=== PATIENT | male | born 1965 | race Caucasian/White ===

== ENCOUNTER 2017-06-20 17:14 | Inpatient (IN) | payer OTHER ==
[2017-06-20 18:28] VITALS: BMI 27.1
--- NOTE | 2017-06-20 19:46 | HP ---
CIWA Score - CIWA Score Nausea/Vomitin-No Nausea/No Vomiting Muscle Tremors: 2 Anxiety: 3 Agitation: 2 Paroxysmal Sweats: No Perspiration Orientation: 2-Disoriented Date<2 days (reports date as 06/16/17) Tacttile Disturbances: 1-Very Mild Itch/Numbness Auditory Disturbances: 0-None Visual Disturbances: 2-Mild Sensitivity Headache: 0-None Present CIWA-Ar Total Score: 12 Admission ROS BHS - HPI Chief Complaint: " I need help, I am a drunk, I need to get my life together. I have the jitters when I do not have alcohol." Allergies/Adverse Reactions: Allergies Allergy/AdvReac Type Severity Reaction Status Date / Time No Known Allergies Allergy Verified 06/20/17 18:50 History of Present Illness: Patient is 52 yo male with hx of chronic alcohol dependence is here seeking detox. Last detox at [facility] 4 years ago. HX : organic brain disease with forgetfulness, HTN, anemia, anxiety, depression. Denies suicidal / homicidal ideation or suicide attempts . reports hx of seizure relates to alcohol use, last seizure 2 years ago. Exam Limitations: No Limitations - Ebola screening Have you traveled outside of the country in the last 21 days: No (N) Have you had contact with anyone from an Ebola affected area: No Have you been sick,other than usual withdrawal symptoms: No Do you have a fever: No - Review of Systems Constitutional: Chills EENT: reports: Hearing Loss (both ears) Respiratory: reports: No Symptoms reported Cardiac: reports: No Symptoms Reported GI: reports: Nausea, Poor Fluid Intake : reports: No Symptoms Reported Musculoskeletal: reports: Back Pain Integumentary: reports: No Symptoms Reported Neuro: reports: See HPI, Seizure Endocrine: reports: Increased Thirst Hematology: reports: Anemia Psychiatric: reports: Orientated x3, Anxious Other Systems: Reviewed and Negative Patient History - Patient Medical History Hx Anemia: Yes Hx Asthma: No Hx Chronic Obstructive Pulmonary Disease (COPD): No Hx Cancer: No Hx Cardiac Disorders: No Hx Congestive Heart Failure: No Hx Hypertension: Yes (not on medication ) Hx Hypercholesterolemia: No Hx Pacemaker: No HX Cerebrovascular Accident: No Hx Seizures: Yes (alcohol related 2 years ago ) Hx Dementia: No Hx Diabetes: No Hx Gastrointestinal Disorders: No Hx Liver Disease: No Hx Genitourinary Disorders: No Hx Sexually Transmitted Disorders: No Hx Renal Disease (ESRD): No Hx Thyroid Disease: No Hx Human Immunodeficiency Virus (HIV): No (reports has not been tested , declines testing today ) Hx Hepatitis C: No Hx Depression: Yes Hx Suicide Attempt: No Hx Bipolar Disorder: No Hx Schizophrenia: No - Patient Surgical History Past Surgical History: Yes Hx Neurologic Surgery: No Hx Cataract Extraction: No Hx Cardiac Surgery: No Hx Lung Surgery: No Hx Breast Surgery: No Hx Breast Biopsy: No Hx Abdominal Surgery: No Hx Appendectomy: No Hx Cholecystectomy: No Hx Genitourinary Surgery: No Hx Section: No Hx Orthopedic Surgery: No Anesthesia Reaction: No - PPD History Previous Implant?: Yes Documented Results: Negative w/o proof PPD to be Administered?: Yes - Reproductive History Patient is a Female of Child Bearing Age (11 -55 yrs old): No - Smoking Cessation Smoking history: Former smoker Have you smoked in the past 12 months: No Aproximately how many cigarettes per day: 0 If you are a former smoker, when did you quit?: 11 YEARS AGO Hx Chewing Tobacco Use: No Initiated information on smoking cessation: Yes 'Breaking Loose' booklet given: 06/20/17 - Substance & Tx. History Hx Alcohol Use: Yes Hx Substance Use: Yes Substance Use Type: Alcohol Hx Substance Use Treatment: Yes ([facility] 4 years ago ) - Substances Abused Alcohol Route: Oral Frequency: Daily Amount used: LIQUOR- 4 PINTS Age of first use: 21 Date of Last Use: 06/20/17 Family Disease History - Family Disease History Family Disease History: CA: Father (), Other: Father Admission Physical Exam S - Vital Signs Vital Signs: Vital Signs - 24 hr 06/20/17 18:22 Temperature 98.1 F Pulse Rate 92 H Respiratory 18 Rate Blood Pressure 133/75 - Physical General Appearance: Yes: Disheveled, Mild Distress, Alcohol on Breath, Sweating , Anxious, Other (malodorous) HEENTM: Yes: EOMI, Normal ENT Inspection, Normocephalic, Normal Voice, Pharynx Normal, Tm's normal, Other (chelithis) Respiratory: Yes: Chest Non-Tender, Lungs Clear, Normal Breath Sounds, No Respiratory Distress, No Accessory Muscle Use Neck: Yes: Within Normal Limits Breast: Yes: Breast Exam Deferred Cardiology: Yes: Regular Rhythm, Regular Rate Abdominal: Yes: Normal Bowel Sounds, Non Tender, Soft, Protuberent, Surgical Scar Genitourinary: Yes: Within Normal Limits Back: Yes: Normal Inspection Musculoskeletal: Yes: full range of Motion, Gait Steady, Pelvis Stable, Back pain Extremities: Yes: Normal Capillary Refill, Normal Inspection, Normal Range of Motion, Non-Tender Neurological: Yes: outreach and education social worker II-XII NML intact, Alert (AO x PP), Motor Strength 5/5, Depressed Affect, Other (forgetful, needs additonal time to process information and to respond) Integumentary: Yes: Normal Color, Warm, Moist Lymphatic: Yes: Within Normal Limits - Diagnostic (1) Alcohol dependence with withdrawal Current Visit: Yes Status: Acute (2) Organic brain syndrome Current Visit: Yes Status: Acute (3) Dehydration Current Visit: Yes Status: Acute (4) Anxious mood Current Visit: Yes Status: Acute (5) Hypertension Current Visit: Yes Status: Chronic Qualifiers: Hypertension type: essential hypertension Qualified Code(s): I10 - Essential (primary) hypertension Cleared for Admission [facility] - Detox or Rehab [facility] Level of Care: Medically Managed Detox Regimen/Protocol: Librium [facility] Breath Alcohol Content Breath Alcohol Content: 0.290 Urine Drug Screen - Results Drug Screen Negative: No Urine Drug Screen Results: BZO-Benzodiazepines
[2017-06-20] MEDS ORDERED: ACETAMINOPHEN 325 MG TABLET (FP) PO PRN (20:01)
[2017-06-20] MEDS ORDERED: MAGNESIUM CITRATE 300 ML BOTTLE PO PRN (20:01)
[2017-06-20] MEDS ORDERED: guaiFENesin/D-METHORPHAN HB 10 ML UNIT-DOSE CUPS PO PRN (20:01)
[2017-06-20] MEDS ORDERED: chlordiazePOXIDE HCL 25 MG CAPSULE PO ONE (20:01)
[2017-06-20] MEDS ORDERED: MAG HYDROX/AL HYDROX/SIMETH 30 ML UNIT-DOSE CUP PO PRN (20:01)
[2017-06-20] MEDS ORDERED: LOPERAMIDE HCL 2 MG CAPSULE PO PRN (20:01)
[2017-06-20] MEDS ORDERED: P-EPHED 60MG/TRIPROLIDI 2.5MG TABLET PO PRN (20:01)
[2017-06-20] MEDS ORDERED: MENTHOL/PHENOL 1 EACH UD MM PRN (20:01)
[2017-06-20] MEDS ORDERED: MAGNESIUM HYDROX 2400MG/30ML ORAL SUSPENSION 30 ML CUP PO PRN (20:01)
[2017-06-20] MEDS ORDERED: IBUPROFEN 400 MG TABLET (FP) PO PRN (20:01)
[2017-06-20] MEDS ORDERED: hydrOXYzine PAMOATE 50 MG CAPSULE (FP) PO PRN (20:01)
[2017-06-20] MEDS ORDERED: MELATONIN 5 MG TABLETS PO PRN (22:00)
[2017-06-20] MEDS: THIAMINE HCL 100 MG TABLET (FP) PO SCH (22:22)
[2017-06-20] MEDS: chlordiazePOXIDE HCL 25 MG CAPSULE PO SCH (22:52)
[2017-06-21 01:40] LABS: URINE APPEARANCE CLEAR; URINE BILIRUBIN NEGATIVE (<2.0 mg/dL); URINE BLOOD NEGATIVE (NEGATIVE); URINE COLOR YELLOW; URINE GLUCOSE (UA) NEGATIVE (NEGATIVE); URINE KETONE NEGATIVE (NEGATIVE); URINE LEUK ESTERASE NEGATIVE (NEGATIVE); URINE NITRITE NEGATIVE (NEGATIVE)
[2017-06-21 01:45] LABS: URINE PROTEIN 1+ (NEGATIVE)
[2017-06-21 01:55] LABS: EPI CELLS FEW /HPF (FEW); URINE HYALINE CAST 1 /lpf; URINE MUCUS RARE
[2017-06-21] MEDS: chlordiazePOXIDE HCL 25 MG CAPSULE PO PRN ×2 (02:38→07:02)
[2017-06-21] MEDS: chlordiazePOXIDE HCL 25 MG CAPSULE PO SCH ×4 (05:19→22:21)
[2017-06-21] MEDS ORDERED: cloNIDine HCL 0.1 MG TABLET PO ONE (06:54)
[2017-06-21] MEDS ORDERED: cloNIDine HCL 0.1 MG TABLET PO PRN (06:54)
--- NOTE | 2017-06-21 10:08 | EKG ---
Test Reason : Blood Pressure : / mmHG Vent. Rate : 109 BPM Atrial Rate : 109 BPM P-R Int : 146 ms QRS Dur : 094 ms QT Int : 330 ms P-R-T Axes : 057 021 044 degrees QTc Int : 444 ms SINUS TACHYCARDIA NO PREVIOUS ECGS AVAILABLE Confirmed by MONTNAA ACOSTA MD ([id number]) on 06/21/2017 10:07:41 AM Referred By: Confirmed By:MONTANA ACOSTA MD
[2017-06-21] MEDS ORDERED: amLODIPine BESYLATE 5 MG TABLET (FP) PO SCH (10:15)
[2017-06-21] MEDS: PRENATAL VITAMINS W/ FOLIC ACID TABLET (FP) PO SCH (10:21)
[2017-06-21 10:30] LABS: ALBUMIN 3.9 g/dl (3.4-5.0); ANION GAP 10 (8-16); BLOOD UREA NITROGEN 13 mg/dL (7-18); CHLORIDE 100 mmol/L (98-107); CO2 30 mmol/L (21-32); GLUCOSE,RANDOM 99 mg/dL (74-106); SODIUM 140 mmol/L (136-145)
[2017-06-21 10:31] LABS: HEMATOCRIT 30.3 % (35.4-49); HEMOGLOBIN 9.3 GM/dL (11.7-16.9); MCH 22.4 pg (25.7-33.7); MCHC 30.6 g/dl (32.0-35.9); MEAN CELL VOLUME 73.3 fl (80-96); MEAN PLT VOLUME 7.5 fl (7.5-11.1); PLATELET COUNT 173 K/MM3 (134-434); RBC 4.13 M/mm3 (4.00-5.60); RDW 22.6 % (11.9-15.9); WHITE BLOOD COUNT 5.5 K/mm3 (4.0-10.0)
[2017-06-21 10:33] LABS: ALK PHOS 111 U/L (45-117); BILIRUBIN,TOTAL 0.5 mg/dL (0.2-1.0); CREATININE 0.7 mg/dL (0.7-1.3); SGOT/AST 33 U/L (15-37); SGPT/ALT 22 U/L (12-78); TOT PROT 8.1 g/dl (6.4-8.2)
--- NOTE | 2017-06-21 10:39 | CONSULT ---
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 Substance Abuse History: Discussed in this interview.Mr Corbin endorses a 30+ history of alcohol abuse. Details in current [facility] report : Smoking history: Former smoker. Have you smoked in the past 12 months: No. Aproximately how many cigarettes per day: 0. If you are a former smoker, when did you quit?: 11 YEARS AGO. Hx Chewing Tobacco Use: No. Initiated information on smoking cessation: Yes. 'Breaking Loose' booklet given: 06/20/17. - Substance & Tx. History. Hx Alcohol Use: Yes. Hx Substance Use: Yes. Substance Use Type: Alcohol. Hx Substance Use Treatment: Yes ([facility] 4 years ago ). - Substances Abused. Alcohol. Route: Oral. Frequency: Daily. Amount used: LIQUOR- 4 PINTS. Age of first use: 21. Date of Last Use: 06/20/17 Medical History: History of organic brain syndrome,seizures,anemia and hypertension. Psychiatric History: No reported history of psychiatric hospitalizations.Patient reports that he used to see a private psychiatrist in the [facility] ([place]) to address depression and anxiety.Dropped out of treatment some weeks ago.Prescribed zoloft 50 mg/day until 06/07/17 as evidenced by pharmacy claims at [facility].Mr Corbin denies history of suicide attempts. Physical/Sexual Abuse/Trauma History: Patient denies history of abuse. Additional Comment: Urine Drug Screen Results: BZO-Benzodiazepines.Noted. Mental Status Exam - Mental Status Exam Alert and Oriented to: Time, Place, Person Cognitive Function: Good Patient Appearance: Well Groomed Mood: Nervous, Withdrawn, Anxious Affect: Mood Congruent, Constricted Patient Behavior: Fatigued, Cooperative Speech Pattern: Clear, Appropriate Voice Loudness: Normal Thought Process: Intact, Goal Oriented Thought Disorder: Not Present Hallucinations: Denies Suicidal Ideation: Denies Insight/Judgement: Fair Sleep: Poorly, Difficulty falling asleep Appetite: Good Muscle strength/Tone: Normal Gait/Station: Normal Psychiatric Findings - Problem List ([place] 1, 2,3) (1) Alcohol dependence with withdrawal Current Visit: Yes Status: Acute Qualifiers: Complication of substance-induced condition: uncomplicated Qualified Code(s ): F10.230 - Alcohol dependence with withdrawal, uncomplicated (2) Substance induced mood disorder Current Visit: Yes Status: Acute (3) Depressive disorder Current Visit: Yes Status: Chronic Comment: As per self-report.On medications. (4) Insomnia Current Visit: Yes Status: Acute Qualifiers: Insomnia type: unspecified Qualified Code(s): G47.00 - Insomnia, unspecified - Initial Treatment Plan Initial Treatment Plan: Psychoeducation.Sleep hygiene discussed.Detoxification in progress.Medications : zoloft 50 mg po daily + vistaril 25 mg po hs.Side effects/benefits of both drugs are discussed with the patient.Patient agrees with this careplan.Observation.
--- NOTE | 2017-06-21 12:32 | PN ---
[facility] CIWA - CIWA Score Nausea/Vomitin-No Nausea/No Vomiting Muscle Tremors: 4-Moderate,w/Arms Extend Anxiety: 5 Agitation: 4-Moderately Restless Paroxysmal Sweats: No Perspiration Orientation: 0-Oriented Tacttile Disturbances: 2-Mild Itch/Numbness/Burn Auditory Disturbances: 2-Mild Harshness/Frighten Visual Disturbances: 0-None Headache: 0-None Present CIWA-Ar Total Score: 17 BHS Progress Note (SOAP) Subjective: Diarrhea, Tremors, Anxious. Objective: PATIENT A & O X 3, OBSERVED AMBULATING ON UNIT. NO ACUTE DISTRESS. PATIENT DENIES CHEST PAIN, SOB, AND DIZZINESS. 06/21/17 12:30 Vital Signs Temperature 96.7 F L 06/21/17 09:10 Pulse Rate 101 H 06/21/17 09:10 Respiratory Rate 18 06/21/17 09:10 Blood Pressure 161/96 06/21/17 09:10 O2 Sat by Pulse Oximetry (%) Laboratory Tests 06/20/17 06/21/17 06/21/17 23:43 08:00 08:00 WBC 5.5 RBC 4.13 Hgb 9.3 L Hct 30.3 L MCV 73.3 L MCH 22.4 L MCHC 30.6 L RDW 22.6 H Plt Count 173 MPV 7.5 Sodium 140 Potassium 4.0 Chloride 100 Carbon Dioxide 30 Anion Gap 10 BUN 13 Creatinine 0.7 Creat Clearance w eGFR > 60 Random Glucose 99 Calcium 9.0 Total Bilirubin 0.5 AST 33 ALT 22 Alkaline Phosphatase 111 Total Protein 8.1 Albumin 3.9 Urine Color Yellow Urine Appearance Clear Urine pH 6.0 Ur Specific [place] 1.024 Urine Protein 1+ H Urine Glucose (UA) Negative Urine Ketones Negative Urine Blood Negative Urine Nitrite Negative Urine Bilirubin Negative Urine Urobilinogen 2.0 Ur Leukocyte Esterase Negative Urine WBC (Auto) 12 Urine RBC (Auto) 1 Ur Epithelial Cells Few Hyaline Casts 1 Urine Mucus Rare RPR Titer 06/21/17 08:00 WBC RBC Hgb Hct MCV MCH MCHC RDW Plt Count MPV Sodium Potassium Chloride Carbon Dioxide Anion Gap BUN Creatinine Creat Clearance w eGFR Random Glucose Calcium Total Bilirubin AST ALT Alkaline Phosphatase Total Protein Albumin Urine Color Urine Appearance Urine pH Ur Specific [place] Urine Protein Urine Glucose (UA) Urine Ketones Urine Blood Urine Nitrite Urine Bilirubin Urine Urobilinogen Ur Leukocyte Esterase Urine WBC (Auto) Urine RBC (Auto) Ur Epithelial Cells Hyaline Casts Urine Mucus RPR Titer Nonreactive LABS NOTED. 06/21/17 12:32 Assessment: 06/21/17 12:30 WITHDRAWAL SYMPTOMS. HYPERTENSION. MICROCYTIC ANEMIA. 06/21/17 12:30 Plan: CONTINUE DETOX. AMLODIPINE, 5 MG PO DAILY (TO START) FOR ELEVATED BP. FEOSOL, 325 MG PO BIDWM FOR ANEMIA. REPEAT CBC ON 06/23/2017. INCREASE DAILY PO FLUID INTAKE.
--- NOTE | 2017-06-21 15:04 | PN ---
S Progress Note Note: Patient's BP continues to be elevated. Additional 5 mg PO of Amlodipine ordered for today, then start Amlodipine, 10 mg PO daily tomorrow. Regina Regalado LICENSE ISSUER
[2017-06-21] MEDS ORDERED: amLODIPine BESYLATE 5 MG TABLET (FP) PO ONE (15:45)
[2017-06-21] MEDS: FERROUS SO4 325 MG TABLET (FP) PO SCH (17:49)
[2017-06-21] MEDS ORDERED: hydrOXYzine PAMOATE 25 MG CAPSULE (FP) PO SCH (22:00)
[2017-06-21] MEDS: THIAMINE HCL 100 MG TABLET (FP) PO SCH (22:21)
[2017-06-22] MEDS: chlordiazePOXIDE HCL 25 MG CAPSULE PO SCH ×3 (05:42→17:38)
[2017-06-22] MEDS: FERROUS SO4 325 MG TABLET (FP) PO SCH ×2 (07:10→17:38)
[2017-06-22] MEDS: SERTRALINE HCL 50 MG TABLET (FP) PO SCH (10:23)
[2017-06-22] MEDS: amLODIPine BESYLATE 10 MG TABLET (FP) PO SCH (10:24)
[2017-06-22] MEDS: PRENATAL VITAMINS W/ FOLIC ACID TABLET (FP) PO SCH (10:24)
--- NOTE | 2017-06-22 16:21 | PN ---
[facility] CIWA - CIWA Score Nausea/Vomitin-No Nausea/No Vomiting Muscle Tremors: 2 Anxiety: 4-Mod. Anxious/Guarded Agitation: 4-Moderately Restless Paroxysmal Sweats: 3 Orientation: 0-Oriented Tacttile Disturbances: 2-Mild Itch/Numbness/Burn Auditory Disturbances: 0-None Visual Disturbances: 0-None Headache: 0-None Present CIWA-Ar Total Score: 15 BHS Progress Note (SOAP) Subjective: Tremors, Anxious, Sweating. Objective: PATIENT A & O X 3, OBSERVED AMBULATING ON UNIT. NO ACUTE DISTRESS. 06/22/17 16:21 Vital Signs Temperature 96.7 F L 06/22/17 14:31 Pulse Rate 117 H 06/22/17 14:31 Respiratory Rate 20 06/22/17 14:31 Blood Pressure 125/65 06/22/17 14:31 O2 Sat by Pulse Oximetry (%) Laboratory Tests 06/20/17 06/21/17 06/21/17 23:43 08:00 08:00 WBC 5.5 RBC 4.13 Hgb 9.3 L Hct 30.3 L MCV 73.3 L MCH 22.4 L MCHC 30.6 L RDW 22.6 H Plt Count 173 MPV 7.5 Sodium 140 Potassium 4.0 Chloride 100 Carbon Dioxide 30 Anion Gap 10 BUN 13 Creatinine 0.7 Creat Clearance w eGFR > 60 Random Glucose 99 Calcium 9.0 Total Bilirubin 0.5 AST 33 ALT 22 Alkaline Phosphatase 111 Total Protein 8.1 Albumin 3.9 Urine Color Yellow Urine Appearance Clear Urine pH 6.0 Ur Specific [place] 1.024 Urine Protein 1+ H Urine Glucose (UA) Negative Urine Ketones Negative Urine Blood Negative Urine Nitrite Negative Urine Bilirubin Negative Urine Urobilinogen 2.0 Ur Leukocyte Esterase Negative Urine WBC (Auto) 12 Urine RBC (Auto) 1 Ur Epithelial Cells Few Hyaline Casts 1 Urine Mucus Rare RPR Titer 06/21/17 08:00 WBC RBC Hgb Hct MCV MCH MCHC RDW Plt Count MPV Sodium Potassium Chloride Carbon Dioxide Anion Gap BUN Creatinine Creat Clearance w eGFR Random Glucose Calcium Total Bilirubin AST ALT Alkaline Phosphatase Total Protein Albumin Urine Color Urine Appearance Urine pH Ur Specific [place] Urine Protein Urine Glucose (UA) Urine Ketones Urine Blood Urine Nitrite Urine Bilirubin Urine Urobilinogen Ur Leukocyte Esterase Urine WBC (Auto) Urine RBC (Auto) Ur Epithelial Cells Hyaline Casts Urine Mucus RPR Titer Nonreactive LABS NOTED. Assessment: 06/22/17 16:21 WITHDRAWAL SYMPTOMS. Plan: CONTINUE DETOX.
--- NOTE | 2017-06-22 16:59 | PN ---
[facility] Progress Note Note: Psychiatry Attending's conservation worker note : Brief encounters with the patient. Throughout the day.Issue : insomnia. Intervention : Sleep hygiene. Ambien 10 mg po hs prn.Ordered. Side effects/benefits discussed with patient. reubenneno agrees with this careplan. Will follow response.
[2017-06-22] MEDS: ZOLPIDEM TARTRATE 10 MG TABLET (PARK CARE ONLY) PO PRN (22:39)
[2017-06-22] MEDS: chlordiazePOXIDE 5 MG CAPSULE PO SCH (22:39)
[2017-06-22] MEDS: THIAMINE HCL 100 MG TABLET (FP) PO SCH (22:39)
[2017-06-23] MEDS: chlordiazePOXIDE 5 MG CAPSULE PO SCH ×3 (05:10→17:21)
[2017-06-23] MEDS: FERROUS SO4 325 MG TABLET (FP) PO SCH ×2 (09:04→17:21)
[2017-06-23] MEDS: amLODIPine BESYLATE 10 MG TABLET (FP) PO SCH (10:17)
[2017-06-23] MEDS: SERTRALINE HCL 50 MG TABLET (FP) PO SCH (10:17)
[2017-06-23] MEDS: PRENATAL VITAMINS W/ FOLIC ACID TABLET (FP) PO SCH (10:17)
--- NOTE | 2017-06-23 10:28 | PN ---
BHS Progress Note (SOAP) Subjective: agitation sweats body aches I need to see psych Objective: 06/23/17 10:27 Vital Signs Temperature 96.2 F L 06/23/17 05:58 Pulse Rate 55 L 06/23/17 05:58 Respiratory Rate 18 06/23/17 05:58 Blood Pressure 97/68 06/23/17 05:58 O2 Sat by Pulse Oximetry (%) [id number] ambulating no acute distress Assessment: 06/23/17 10:27 withdrawal sx Plan: continue detox increase fluids psych ordered as per pt request
[2017-06-23 11:04] LABS: BASO % 1.3 % (0-2.0); EOS % 3.8 % (0-4.5); HEMATOCRIT 29.4 % (35.4-49); HEMOGLOBIN 8.9 GM/dL (11.7-16.9); LYMPH % 24.9 % (8-40); MCH 22.4 pg (25.7-33.7); MCHC 30.4 g/dl (32.0-35.9); MEAN CELL VOLUME 73.9 fl (80-96); MEAN PLT VOLUME 8.5 fl (7.5-11.1); MONO % 15.5 % (3.8-10.2); NEUT % 54.5 % (42.8-82.8); PLATELET COUNT 149 K/MM3 (134-434); RBC 3.99 M/mm3 (4.00-5.60); RDW 21.9 % (11.9-15.9); WHITE BLOOD COUNT 5.5 K/mm3 (4.0-10.0)
[2017-06-23 11:10] LABS: ADD RBC MORPHOLOGY YES
[2017-06-23 14:38] LABS: ANISOCYTOSIS 2+
[2017-06-23 14:39] LABS: PLATELET ESTIMATE ADEQUATE
[2017-06-23] MEDS ORDERED: chlordiazePOXIDE 5 MG CAPSULE ONE (21:07)
[2017-06-23] MEDS: ZOLPIDEM TARTRATE 10 MG TABLET (PARK CARE ONLY) PO PRN (22:10)
[2017-06-23] MEDS: chlordiazePOXIDE HCL 10 MG CAPSULE PO SCH (22:10)
[2017-06-23] MEDS: THIAMINE HCL 100 MG TABLET (FP) PO SCH (22:10)
[2017-06-24] MEDS: chlordiazePOXIDE HCL 10 MG CAPSULE PO SCH (05:14)
[2017-06-24] MEDS: FERROUS SO4 325 MG TABLET (FP) PO SCH (07:32)
[2017-06-24 09:09] VITALS: BP 128/82; PULSE 104; TEMP 96.3
[2017-06-24] MEDS: amLODIPine BESYLATE 10 MG TABLET (FP) PO SCH (09:41)
[2017-06-24] MEDS: SERTRALINE HCL 50 MG TABLET (FP) PO SCH (09:41)
[2017-06-24] MEDS: PRENATAL VITAMINS W/ FOLIC ACID TABLET (FP) PO SCH (09:41)
--- NOTE | 2017-06-24 17:07 | PN ---
S Progress Note (SOAP) Subjective: Patient denies any current Detox symptoms and reports that he feels well overall. Objective: PATIENT A & O X X, OBSERVED AMBULATING ON UNIT. NO ACUTE DISTRESS. 06/24/17 17:05 Vital Signs Temperature 96.3 F L 06/24/17 09:08 Pulse Rate 104 H 06/24/17 09:08 Respiratory Rate 18 06/24/17 09:08 Blood Pressure 128/82 06/24/17 09:08 O2 Sat by Pulse Oximetry (%) Laboratory Tests 06/20/17 06/21/17 06/21/17 23:43 08:00 08:00 WBC 5.5 RBC 4.13 Hgb 9.3 L Hct 30.3 L MCV 73.3 L MCH 22.4 L MCHC 30.6 L RDW 22.6 H Plt Count 173 MPV 7.5 Neutrophils % Lymphocytes % Monocytes % Eosinophils % Basophils % Hypochromia Platelet Estimate Polychromasia Anisocytosis Sodium 140 Potassium 4.0 Chloride 100 Carbon Dioxide 30 Anion Gap 10 BUN 13 Creatinine 0.7 Creat Clearance w eGFR > 60 Random Glucose 99 Calcium 9.0 Total Bilirubin 0.5 AST 33 ALT 22 Alkaline Phosphatase 111 Total Protein 8.1 Albumin 3.9 Urine Color Yellow Urine Appearance Clear Urine pH 6.0 Ur Specific [place] 1.024 Urine Protein 1+ H Urine Glucose (UA) Negative Urine Ketones Negative Urine Blood Negative Urine Nitrite Negative Urine Bilirubin Negative Urine Urobilinogen 2.0 Ur Leukocyte Esterase Negative Urine WBC (Auto) 12 Urine RBC (Auto) 1 Ur Epithelial Cells Few Hyaline Casts 1 Urine Mucus Rare RPR Titer 06/21/17 06/23/17 08:00 07:40 WBC 5.5 RBC 3.99 L Hgb 8.9 L Hct 29.4 L MCV 73.9 L MCH 22.4 L MCHC 30.4 L RDW 21.9 H Plt Count 149 MPV 8.5 D Neutrophils % 54.5 Lymphocytes % 24.9 Monocytes % 15.5 H Eosinophils % 3.8 Basophils % 1.3 Hypochromia 1+ Platelet Estimate Adequate Polychromasia 1+ Anisocytosis 2+ Sodium Potassium Chloride Carbon Dioxide Anion Gap BUN Creatinine Creat Clearance w eGFR Random Glucose Calcium Total Bilirubin AST ALT Alkaline Phosphatase Total Protein Albumin Urine Color Urine Appearance Urine pH Ur Specific [place] Urine Protein Urine Glucose (UA) Urine Ketones Urine Blood Urine Nitrite Urine Bilirubin Urine Urobilinogen Ur Leukocyte Esterase Urine WBC (Auto) Urine RBC (Auto) Ur Epithelial Cells Hyaline Casts Urine Mucus RPR Titer Nonreactive LABS NOTED. Assessment: 06/24/17 17:06 COMPLETION OF DETOX REGIMEN. Plan: PATIENT SCHEDULED FOR DISCHARGE FROM DETOX TODAY.
--- NOTE | 2017-06-24 17:12 | DS ---
[facility] Detox Discharge Summary Admission Date: 06/20/17 Discharge Date: 06/24/17 - History Present History: Alcohol Dependence Additional Comments: NO BEDS ARE AVAILABLE AT [facility] AT THIS TIME, PATIENT WILL RETURN TO [facility] [place] [place] FOR THE TIME BEING AND WILL THEN APPLY FOR ADMISSION TO REHAB / LONG-TERM PROGRAM AT A LATER DATE. PRESCRIPTION FOR FOLLOW-UP FOR AMLODIPINE SENT TO PATIENT'S PHARMACY ([facility], [place] PATIENT ADVISED TO FOLLOW- UP WITH [facility] DR. RIVERA ([place], [place] AFTER DISCHARGE FROM DETOX FOR GENERAL MEDICAL EVALUATION AND FOR HISTORY OF HYPERTENSION. PATIENT WAS DISCHARGED FROM DETOX UNIT IN STABLE MEDICAL CONDITION. Pertinent Past History: History of Anemia, Organic Brain, Syndrome, Insomnia, Dehydration, Depression, Anxiety, History of Seizures. - Physical Exam Results Vital Signs: Vital Signs Temperature 96.3 F L 06/24/17 09:08 Pulse Rate 104 H 06/24/17 09:08 Respiratory Rate 18 06/24/17 09:08 Blood Pressure 128/82 06/24/17 09:08 O2 Sat by Pulse Oximetry (%) Pertinent Admission Physical Exam Findings: WITHDRAWAL SYMPTOMS. Laboratory Tests 06/20/17 06/21/17 06/21/17 23:43 08:00 08:00 WBC 5.5 RBC 4.13 Hgb 9.3 L Hct 30.3 L MCV 73.3 L MCH 22.4 L MCHC 30.6 L RDW 22.6 H Plt Count 173 MPV 7.5 Neutrophils % Lymphocytes % Monocytes % Eosinophils % Basophils % Hypochromia Platelet Estimate Polychromasia Anisocytosis Sodium 140 Potassium 4.0 Chloride 100 Carbon Dioxide 30 Anion Gap 10 BUN 13 Creatinine 0.7 Creat Clearance w eGFR > 60 Random Glucose 99 Calcium 9.0 Total Bilirubin 0.5 AST 33 ALT 22 Alkaline Phosphatase 111 Total Protein 8.1 Albumin 3.9 Urine Color Yellow Urine Appearance Clear Urine pH 6.0 Ur Specific [place] 1.024 Urine Protein 1+ H Urine Glucose (UA) Negative Urine Ketones Negative Urine Blood Negative Urine Nitrite Negative Urine Bilirubin Negative Urine Urobilinogen 2.0 Ur Leukocyte Esterase Negative Urine WBC (Auto) 12 Urine RBC (Auto) 1 Ur Epithelial Cells Few Hyaline Casts 1 Urine Mucus Rare RPR Titer 06/21/17 06/23/17 08:00 07:40 WBC 5.5 RBC 3.99 L Hgb 8.9 L Hct 29.4 L MCV 73.9 L MCH 22.4 L MCHC 30.4 L RDW 21.9 H Plt Count 149 MPV 8.5 D Neutrophils % 54.5 Lymphocytes % 24.9 Monocytes % 15.5 H Eosinophils % 3.8 Basophils % 1.3 Hypochromia 1+ Platelet Estimate Adequate Polychromasia 1+ Anisocytosis 2+ Sodium Potassium Chloride Carbon Dioxide Anion Gap BUN Creatinine Creat Clearance w eGFR Random Glucose Calcium Total Bilirubin AST ALT Alkaline Phosphatase Total Protein Albumin Urine Color Urine Appearance Urine pH Ur Specific [place] Urine Protein Urine Glucose (UA) Urine Ketones Urine Blood Urine Nitrite Urine Bilirubin Urine Urobilinogen Ur Leukocyte Esterase Urine WBC (Auto) Urine RBC (Auto) Ur Epithelial Cells Hyaline Casts Urine Mucus RPR Titer Nonreactive LABS NOTED. - Treatment Hospital Course: Detox Protocol Followed, Detoxed Safely, Responded well, Discharged Condition Good Patient has Accepted a Rehab Referral to: PT RETURNING TO [facility], WILL APPLY FOR REHAB AT LATER DATE. - Medication Discharge Medications: Ambulatory Orders Sertraline HCl [Zoloft -] 50 mg PO DAILY #30 tablet 06/22/17 Amlodipine Besylate 5 mg PO DAILY 30 Days #30 tablet 06/24/17 - Diagnosis (1) Alcohol dependence with withdrawal Status: Acute Qualifiers: Complication of substance-induced condition: uncomplicated Qualified Code(s ): F10.230 - Alcohol dependence with withdrawal, uncomplicated (2) Anxious mood Status: Acute (3) Dehydration Status: Acute (4) Organic brain syndrome Status: Acute (5) Hypertension Status: Chronic Qualifiers: Hypertension type: essential hypertension Qualified Code(s): I10 - Essential (primary) hypertension (6) Insomnia Status: Acute Qualifiers: Insomnia type: unspecified Qualified Code(s): G47.00 - Insomnia, unspecified (7) Substance induced mood disorder Status: Acute (8) Depressive disorder Status: Chronic - AMA Did Patient Leave Against Medical Advice: No
== END 2017-06-24 09:51 | disposition home or self-care (01) | DRG 775 ==
LOC: YASAS 17:14 → Y3N 19:10
PROVIDERS: ADMIT Internal Medicine; ATTEND Internal Medicine
PROC: HZ2ZZZZ Detoxification Services for Substance Abuse Treatment (ICD-10-PCS; principal; 2017-06-20)
DX: F10.230 Alcohol dependence with withdrawal, uncomplicated (principal); F41.9 Anxiety disorder, unspecified; F19.24 Other psychoactive substance dependence with psychoactive substance-induced mood disorder; F09 Unspecified mental disorder due to known physiological condition; G47.00 Insomnia, unspecified; I10 Essential (primary) hypertension; E86.0 Dehydration; Z86.69 Personal history of other diseases of the nervous system and sense organs
CPT/HCPCS: 36415; 80053; 81003; 81015; 85025; 85027; 86593; 93005; 93010; J0735

== ENCOUNTER 2020-02-05 13:55 | Inpatient (IN) | payer OTHER ==
[2020-02-05 15:22] VITALS: BMI 27.1
[2020-02-05] MEDS ORDERED: MAG HYDROX/AL HYDROX/SIMETH 30 ML UNIT-DOSE CUP PO PRN (15:30)
[2020-02-05] MEDS ORDERED: MAGNESIUM CITRATE 300 ML BOTTLE PO PRN (15:30)
[2020-02-05] MEDS ORDERED: ACETAMINOPHEN 325 MG TABLET (FP) PO PRN (15:30)
[2020-02-05] MEDS ORDERED: guaiFENesin 200 MG/10 ML 10 ML UNIT-DOSE CUPS PO PRN (15:30)
[2020-02-05] MEDS ORDERED: P-EPHED 60MG/TRIPROLIDI 2.5MG TABLET PO PRN (15:30)
[2020-02-05] MEDS ORDERED: LOPERAMIDE HCL 2 MG CAPSULE PO PRN (15:30)
[2020-02-05] MEDS ORDERED: MAGNESIUM HYDROX 2400MG/30ML ORAL SUSPENSION 30 ML CUP PO PRN (15:30)
[2020-02-05] MEDS ORDERED: NICOTINE POLACRILEX 2 MG GUM BUC PRN (15:30)
[2020-02-05] MEDS ORDERED: IBUPROFEN 400 MG TABLET (FP) PO PRN (15:30)
[2020-02-05] MEDS: hydrOXYzine PAMOATE 25 MG CAPSULE (FP) PO SCH ×2 (17:35→22:10)
[2020-02-05] MEDS: THIAMINE HCL 100 MG TABLET (FP) PO SCH (22:10)
[2020-02-05] MEDS: MELATONIN 5 MG TABLETS PO SCH (22:10)
[2020-02-06] MEDS: hydrOXYzine PAMOATE 25 MG CAPSULE (FP) PO SCH ×5 (07:00→21:27)
[2020-02-06] MEDS: FERROUS SO4 325 MG TABLET (FP) PO SCH (10:01)
[2020-02-06] MEDS: amLODIPine BESYLATE 10 MG TABLET (FP) PO SCH ×2 (10:01)
[2020-02-06] MEDS: PRENATAL VITAMINS W/ FOLIC ACID TABLET (FP) PO SCH (10:02)
[2020-02-06] MEDS: NICOTINE 7 MG/24 HOURS TOPICAL PATCH TD SCH (10:03)
[2020-02-06] MEDS: NALTREXONE HCL 50 MG TABLET PO SCH (11:41)
[2020-02-06 11:53] LABS: URINE APPEARANCE CLEAR; URINE BILIRUBIN NEGATIVE (NEGATIVE); URINE COLOR YELLOW; URINE GLUCOSE (UA) NEGATIVE (NEGATIVE); URINE KETONE NEGATIVE (NEGATIVE); URINE LEUK ESTERASE NEGATIVE (NEGATIVE); URINE NITRITE NEGATIVE (NEGATIVE); URINE PROTEIN NEGATIVE (NEGATIVE); URINE UROBILINOGEN 0.2 mg/dL (0.2-1.0)
[2020-02-06 11:59] LABS: HEMATOCRIT 38.3 % (35.4-49); MCH 33.4 pg (25.7-33.7); MCHC 33.9 g/dl (32.0-35.9); MEAN CELL VOLUME 98.5 fl (80-96); MEAN PLT VOLUME 9.4 fl (7.5-11.1); PLATELET COUNT 139 K/MM3 (134-434); RBC 3.89 M/mm3 (4.00-5.60); RDW 15.2 % (11.9-15.9); WHITE BLOOD COUNT 4.9 K/mm3 (4.0-10.0)
[2020-02-06 12:01] LABS: POTASSIUM 4.4 mmol/L (3.5-5.1)
[2020-02-06 12:18] LABS: ALBUMIN 3.5 g/dl (3.4-5.0); BLOOD UREA NITROGEN 14.2 mg/dL (7-18)
[2020-02-06 12:21] LABS: CREATININE 0.7 mg/dL (0.55-1.3)
[2020-02-06 12:22] LABS: BILIRUBIN,TOTAL 0.4 mg/dL (0.2-1)
[2020-02-06 12:23] LABS: TOT PROT 6.7 g/dl (6.4-8.2)
[2020-02-06 12:29] LABS: SICKLE CELL SCREEN NEGATIVE (NEGATIVE)
[2020-02-06] MEDS: THIAMINE HCL 100 MG TABLET (FP) PO SCH (21:27)
[2020-02-06] MEDS: MELATONIN 5 MG TABLETS PO SCH (21:27)
[2020-02-06] MEDS: SUVOREXANT 10 MG TABLET PO PRN (21:27)
[2020-02-06] MEDS ORDERED: MASKS NR ONE (21:56)
[2020-02-07] MEDS: hydrOXYzine PAMOATE 25 MG CAPSULE (FP) PO SCH ×5 (06:54→21:23)
[2020-02-07] MEDS: PRENATAL VITAMINS W/ FOLIC ACID TABLET (FP) PO SCH (09:40)
[2020-02-07] MEDS: NICOTINE 7 MG/24 HOURS TOPICAL PATCH TD SCH (09:41)
[2020-02-07] MEDS: amLODIPine BESYLATE 10 MG TABLET (FP) PO SCH (09:41)
[2020-02-07] MEDS: FERROUS SO4 325 MG TABLET (FP) PO SCH (09:41)
[2020-02-07] MEDS: NALTREXONE HCL 50 MG TABLET PO SCH (09:42)
[2020-02-07] MEDS: MELATONIN 5 MG TABLETS PO SCH (21:23)
[2020-02-07] MEDS: SUVOREXANT 10 MG TABLET PO PRN (21:23)
[2020-02-07] MEDS: THIAMINE HCL 100 MG TABLET (FP) PO SCH (21:23)
[2020-02-08] MEDS: hydrOXYzine PAMOATE 25 MG CAPSULE (FP) PO SCH ×5 (06:28→21:27)
[2020-02-08] MEDS: NICOTINE 7 MG/24 HOURS TOPICAL PATCH TD SCH (10:15)
[2020-02-08] MEDS: amLODIPine BESYLATE 10 MG TABLET (FP) PO SCH (10:15)
[2020-02-08] MEDS: FERROUS SO4 325 MG TABLET (FP) PO SCH (10:15)
[2020-02-08] MEDS: PRENATAL VITAMINS W/ FOLIC ACID TABLET (FP) PO SCH (10:15)
[2020-02-08] MEDS: NALTREXONE HCL 50 MG TABLET PO SCH (10:16)
[2020-02-08] MEDS: SUVOREXANT 10 MG TABLET PO PRN (21:27)
[2020-02-08] MEDS: THIAMINE HCL 100 MG TABLET (FP) PO SCH (21:27)
[2020-02-08] MEDS: MELATONIN 5 MG TABLETS PO SCH (21:27)
[2020-02-09] MEDS: hydrOXYzine PAMOATE 25 MG CAPSULE (FP) PO SCH ×5 (06:09→21:33)
[2020-02-09] MEDS: FERROUS SO4 325 MG TABLET (FP) PO SCH (09:34)
[2020-02-09] MEDS: amLODIPine BESYLATE 10 MG TABLET (FP) PO SCH (09:34)
[2020-02-09] MEDS: PRENATAL VITAMINS W/ FOLIC ACID TABLET (FP) PO SCH (09:34)
[2020-02-09] MEDS: NICOTINE 7 MG/24 HOURS TOPICAL PATCH TD SCH (09:35)
[2020-02-09] MEDS: NALTREXONE HCL 50 MG TABLET PO SCH (10:34)
[2020-02-09] MEDS: MELATONIN 5 MG TABLETS PO SCH (21:33)
[2020-02-09] MEDS: THIAMINE HCL 100 MG TABLET (FP) PO SCH (21:33)
[2020-02-09] MEDS: SUVOREXANT 10 MG TABLET PO PRN (21:34)
[2020-02-10] MEDS: hydrOXYzine PAMOATE 25 MG CAPSULE (FP) PO SCH ×5 (06:43→21:22)
[2020-02-10] MEDS: PRENATAL VITAMINS W/ FOLIC ACID TABLET (FP) PO SCH (09:35)
[2020-02-10] MEDS: NICOTINE 7 MG/24 HOURS TOPICAL PATCH TD SCH (09:35)
[2020-02-10] MEDS: FERROUS SO4 325 MG TABLET (FP) PO SCH (09:35)
[2020-02-10] MEDS: amLODIPine BESYLATE 10 MG TABLET (FP) PO SCH (09:36)
[2020-02-10] MEDS: NALTREXONE HCL 50 MG TABLET PO SCH (09:36)
[2020-02-10] MEDS: MELATONIN 5 MG TABLETS PO SCH (21:22)
[2020-02-10] MEDS: THIAMINE HCL 100 MG TABLET (FP) PO SCH (21:22)
[2020-02-11] MEDS: hydrOXYzine PAMOATE 25 MG CAPSULE (FP) PO SCH ×2 (06:36→09:46)
[2020-02-11] MEDS: NICOTINE 7 MG/24 HOURS TOPICAL PATCH TD SCH (09:46)
[2020-02-11] MEDS: FERROUS SO4 325 MG TABLET (FP) PO SCH (09:46)
[2020-02-11] MEDS: PRENATAL VITAMINS W/ FOLIC ACID TABLET (FP) PO SCH (09:46)
[2020-02-11] MEDS: NALTREXONE HCL 50 MG TABLET PO SCH (09:46)
[2020-02-11] MEDS: amLODIPine BESYLATE 10 MG TABLET (FP) PO SCH (09:46)
[2020-02-11] MEDS ORDERED: hydrOXYzine PAMOATE 25 MG CAPSULE (FP) PO PRN (13:05)
[2020-02-11] MEDS: THIAMINE HCL 100 MG TABLET (FP) PO SCH (21:23)
[2020-02-11] MEDS: SUVOREXANT 10 MG TABLET PO PRN (21:23)
[2020-02-11] MEDS: MELATONIN 5 MG TABLETS PO SCH (21:23)
[2020-02-12] MEDS: NICOTINE 7 MG/24 HOURS TOPICAL PATCH TD SCH (09:40)
[2020-02-12] MEDS: amLODIPine BESYLATE 10 MG TABLET (FP) PO SCH (09:40)
[2020-02-12] MEDS: NALTREXONE HCL 50 MG TABLET PO SCH (09:40)
[2020-02-12] MEDS: FERROUS SO4 325 MG TABLET (FP) PO SCH (09:40)
[2020-02-12] MEDS: PRENATAL VITAMINS W/ FOLIC ACID TABLET (FP) PO SCH (09:40)
[2020-02-12] MEDS: THIAMINE HCL 100 MG TABLET (FP) PO SCH (22:02)
[2020-02-12] MEDS: BACITRACIN 0.9 GM PACKET TP SCH (22:02)
[2020-02-12] MEDS: MELATONIN 5 MG TABLETS PO SCH (22:02)
[2020-02-12] MEDS: SUVOREXANT 10 MG TABLET PO PRN (22:04)
[2020-02-13] MEDS: PRENATAL VITAMINS W/ FOLIC ACID TABLET (FP) PO SCH (09:44)
[2020-02-13] MEDS: amLODIPine BESYLATE 10 MG TABLET (FP) PO SCH (09:44)
[2020-02-13] MEDS: BACITRACIN 0.9 GM PACKET TP SCH ×2 (09:44→21:17)
[2020-02-13] MEDS: FERROUS SO4 325 MG TABLET (FP) PO SCH (09:44)
[2020-02-13] MEDS: NICOTINE 7 MG/24 HOURS TOPICAL PATCH TD SCH (09:45)
[2020-02-13] MEDS: NALTREXONE HCL 50 MG TABLET PO SCH (09:46)
[2020-02-13] MEDS: MELATONIN 5 MG TABLETS PO SCH (21:17)
[2020-02-13] MEDS: SUVOREXANT 10 MG TABLET PO PRN (21:17)
[2020-02-13] MEDS: THIAMINE HCL 100 MG TABLET (FP) PO SCH (21:17)
[2020-02-14] MEDS: FERROUS SO4 325 MG TABLET (FP) PO SCH (09:38)
[2020-02-14] MEDS: PRENATAL VITAMINS W/ FOLIC ACID TABLET (FP) PO SCH (09:38)
[2020-02-14] MEDS: BACITRACIN 0.9 GM PACKET TP SCH ×2 (09:39→21:32)
[2020-02-14] MEDS: NICOTINE 7 MG/24 HOURS TOPICAL PATCH TD SCH (09:39)
[2020-02-14] MEDS: amLODIPine BESYLATE 10 MG TABLET (FP) PO SCH (09:39)
[2020-02-14] MEDS: NALTREXONE HCL 50 MG TABLET PO SCH (09:39)
[2020-02-14] MEDS: THIAMINE HCL 100 MG TABLET (FP) PO SCH (21:32)
[2020-02-14] MEDS: MELATONIN 5 MG TABLETS PO SCH (21:32)
[2020-02-14] MEDS: SUVOREXANT 10 MG TABLET PO PRN (21:34)
[2020-02-15] MEDS: NICOTINE 7 MG/24 HOURS TOPICAL PATCH TD SCH (10:00)
[2020-02-15] MEDS: NALTREXONE HCL 50 MG TABLET PO SCH (10:00)
[2020-02-15] MEDS: BACITRACIN 0.9 GM PACKET TP SCH ×2 (10:00→21:20)
[2020-02-15] MEDS: PRENATAL VITAMINS W/ FOLIC ACID TABLET (FP) PO SCH (10:00)
[2020-02-15] MEDS: FERROUS SO4 325 MG TABLET (FP) PO SCH (10:00)
[2020-02-15] MEDS: amLODIPine BESYLATE 10 MG TABLET (FP) PO SCH (10:00)
[2020-02-15] MEDS ORDERED: MENTHOL/PHENOL 1 EACH UD MM PRN (17:41)
[2020-02-15] MEDS: THIAMINE HCL 100 MG TABLET (FP) PO SCH (21:20)
[2020-02-15] MEDS: SUVOREXANT 10 MG TABLET PO PRN (21:20)
[2020-02-15] MEDS: MELATONIN 5 MG TABLETS PO SCH (21:20)
[2020-02-15] MEDS ORDERED: SUVOREXANT 10 MG TABLET PO PRN (22:00)
[2020-02-16] MEDS: FERROUS SO4 325 MG TABLET (FP) PO SCH (09:37)
[2020-02-16] MEDS: BACITRACIN 0.9 GM PACKET TP SCH ×2 (09:37→21:38)
[2020-02-16] MEDS: amLODIPine BESYLATE 10 MG TABLET (FP) PO SCH (09:38)
[2020-02-16] MEDS: NICOTINE 7 MG/24 HOURS TOPICAL PATCH TD SCH (09:38)
[2020-02-16] MEDS: PRENATAL VITAMINS W/ FOLIC ACID TABLET (FP) PO SCH (09:38)
[2020-02-16] MEDS ORDERED: NALTREXONE MICROSPHERES (VIVITROL) 380 MG DISP.SYRIN IM ONE (13:00)
[2020-02-16] MEDS: MELATONIN 5 MG TABLETS PO SCH (21:38)
[2020-02-16] MEDS: THIAMINE HCL 100 MG TABLET (FP) PO SCH (21:38)
[2020-02-17 05:45] VITALS: BP 132/79; PULSE 94; TEMP 97.8
[2020-02-17] MEDS: PRENATAL VITAMINS W/ FOLIC ACID TABLET (FP) PO SCH (09:16)
[2020-02-17] MEDS: BACITRACIN 0.9 GM PACKET TP SCH (09:16)
[2020-02-17] MEDS: FERROUS SO4 325 MG TABLET (FP) PO SCH (09:16)
[2020-02-17] MEDS: NICOTINE 7 MG/24 HOURS TOPICAL PATCH TD SCH (09:17)
[2020-02-17] MEDS: amLODIPine BESYLATE 10 MG TABLET (FP) PO SCH (09:17)
== END 2020-02-17 10:15 | disposition home or self-care (01) | DRG 772 ==
LOC: YASAS 13:55 → Y5N 15:18
PROVIDERS: ADMIT Allergy & Immunology; ATTEND Allergy & Immunology
PROC: HZ42ZZZ Group Counseling for Substance Abuse Treatment, Cognitive-Behavioral (ICD-10-PCS; principal; 2020-02-05)
DX: F10.20 Alcohol dependence, uncomplicated (principal); F17.211 Nicotine dependence, cigarettes, in remission; F19.24 Other psychoactive substance dependence with psychoactive substance-induced mood disorder; F32.9 Major depressive disorder, single episode, unspecified; G47.00 Insomnia, unspecified; Z86.2 Personal history of diseases of the blood and blood-forming organs and certain disorders involving the immune mechanism; Z86.69 Personal history of other diseases of the nervous system and sense organs; Z98.890 Other specified postprocedural states; Z56.0 Unemployment, unspecified; Z59.0 Homelessness
CPT/HCPCS: 36415; 71046-TC-FY; 80053; 81003; 85027; 85660; 86780; J2315